=== PATIENT | male | born 1930 | race Caucasian/White ===

== ENCOUNTER 2017-06-02 14:21 | Observation (INO) | payer OTHER ==
--- NOTE | 2017-06-02 14:24 | EDPHY ---
HPI/HX/ROS/PE/MDM Narrative: CHIEF COMPLAINT: Syncopal episode, fall HPI: This patient is an 86 year old male arriving via EMS following a syncopal episode earlier this afternoon when getting up from his kitchen table. He remembers sitting at the table, and then being suddenly on the floor. He cannot think of any precipitating factors. EMS crews were able to walk him to the pram. They report a laceration to the back of his head and skin tear to his left elbow. He is currently feeling well, and complains of some pain in the area of his left hip. He denies chest pain, shortness of breath, or other associated symptoms. He states he has no history of cardiac disease or other cardiac issues. REVIEW OF SYSTEMS: Aside from elements discussed in the HPI, a comprehensive 10-point review of systems was reviewed and is negative. PMH: Prostate cancer, appendectomy, tonsillectomy SOCIAL HISTORY: . Retired. Lives in [place]. PHYSICAL EXAM: General:Patient is alert, in no acute distress. Head: 1.5cm abrasion to left occiput. ENT:Eyes are normal to inspection. ENT inspection normal. Neck: Normal inspection. Full range of motion. Respiratory:No respiratory distress. Breath sounds normal bilaterally. Cardiovascular: Regular rate and rhythm. Strong peripheral pulses. Normal cap refill. Abdomen:The abdomen is nontender to palpation. There are no peritoneal signs. There are normal bowel sounds. Back: Normal to inspection. No tenderness to palpation. Skin: Normal color. No rash. Warm and dry. Extremities: Skin tear to right elbow. Tenderness to left lower costal margin. Full range of motion. Neuro: Normal motor function. Normal sensory function. Portions of this note were transcribed by an ED scribe. I personally performed the history, physical exam, and medical decision making; and confirm the accuracy of the information in the transcribed note. ED Course: EKG was ordered and interpreted by myself. Please see [facility] system for official reading. Sinus rhythm, rate 99. Plan for chest x-ray, CT head. Plan for labs including CBC, BMP, Troponin, and PTPTT. Chest x-ray shows evidence of chronic changes, no acute processes. 15:[address] Cardoza, radiologist. CT head is negative for acute processes. Plan for CT abdomen/pelvis. 16:04 Further history obtained from patient's . She states he stood and "went down like a rock" on the kitchen floor, striking his head. She was unable to get him to respond to her, and noted him turning blue. She noted blood on his head as well, and called EMS. No CPR performed, the patient aroused spontaneously. He had no complaints prior to his syncopal episode. His does state that he is generally "wobbly". 17:54 Spoke with hospitalist service. Dr. Logan accepts admission. MDM: This patient presents with fall and syncopal episode of unclear etiology. History is relatively limited from the patient and family is unavailable to provide further history in person. Given telephonic account via bilingual patient support caseworker, it sounds like this represents a fairly concerning event, and cardiac dysrhythmia is certainly in the differential. I see no sign of infectious process or severe sepsis at this time. I see no evidence of CVA or ACS. - Data Points Imaging Results: Imaging Impressions Chest X-Ray 06/02/17 14:25 Impression: 1. Hypoventilatory chest with probable bronchitis and basilar atelectasis. 2. 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 3. Additional findings as above. Head CT 06/02/17 14:26 Impression: 1. No acute intracranial findings. 2. Diffuse cerebral atrophy with periventricular and subcortical low attenuation consistent with chronic microvascular ischemic gliosis. Findings discussed with Fermin Juarez MD 06/02/2017 at 15:03. Abdomen CT 06/02/17 15:52 Impression: 1. Multiple parapelvic cysts are seen bilaterally slightly compression from the cysts may contribute to mild calyceal dilatation. There is no ureteral obstruction. 2. Suspect hepatic hemangioma. 3. Mild prostatic enlargement is seen with associated invagination of the bladder floor. 4. Negative for displaced rib fracture or pneumothorax. 5. See above report for additional findings. Results called and discussed with Fermin Juarez MD on 06/02/2017 17:49 Laboratory Results: Laboratory Results 06/02/17 14:25 06/02/17 14:25 06/02/17 06/02/17 06/02/17 14:25 14:25 14:25 WBC 5.77 10^3/uL 10^3/uL (3.80-9.50) RBC 5.23 10^6/uL 10^6/uL (4.40-6.38) Hgb 16.4 g/dL g/dL (13.7-17.5) Hct 48.0 % % (40.0-51.0) MCV 91.8 fL fL (81.5-99.8) MCH 31.4 pg pg (27.9-34.1) MCHC 34.2 g/dL g/dL (32.4-36.7) RDW 12.4 % % (11.5-15.2) Plt Count 152 10^3/uL 10^3/uL (150-400) MPV 11.0 fL fL (8.7-11.7) Neut % (Auto) 52.8 % % (39.3-74.2) Lymph % (Auto) 35.7 % % (15.0-45.0) [place] % (Auto) 8.7 % % (4.5-13.0) Eos % (Auto) 1.4 % % (0.6-7.6) Baso % (Auto) 0.5 % % (0.3-1.7) Nucleat RBC Rel Count 0.0 % % (0.0-0.2) Absolute Neuts (auto) 3.05 10^3/uL 10^3/uL (1.70-6.50) Absolute Lymphs (auto) 2.06 10^3/uL 10^3/uL (1.00-3.00) Absolute Monos (auto) 0.50 10^3/uL 10^3/uL (0.30-0.80) Absolute Eos (auto) 0.08 10^3/uL 10^3/uL (0.03-0.40) Absolute Basos (auto) 0.03 10^3/uL 10^3/uL (0.02-0.10) Absolute Nucleated RBC 0.00 10^3/uL 10^3/uL (0-0.01) Immature Gran % 0.9 % % (0.0-1.1) Immature Gran # 0.05 10^3/uL 10^3/uL (0.00-0.10) PT 13.3 SEC SEC (12.0-15.0) INR 1.02 (0.83-1.16) APTT 25.2 SEC SEC (23.0-38.0) Sodium 141 mEq/L mEq/L (134-144) Potassium 4.2 mEq/L mEq/L (3.5-5.2) Chloride 106 mEq/L mEq/L (97-110) Carbon Dioxide 24 mEq/l mEq/l (22-31) Anion Gap 11 mEq/L mEq/L (8-16) BUN 16 mg/dL mg/dL (7-23) Creatinine 1.0 mg/dL mg/dL (0.7-1.3) Estimated GFR > 60 Glucose 123 mg/dL H mg/dL (70-100) Calcium 9.9 mg/dL mg/dL (8.5-10.4) Troponin I < 0.012 ng/mL ng/mL (0-0.034) Medications Given: Discontinued Medications Sodium Chloride (Ns) 1,000 mls @ 0 mls/hr IV ONCE ONE; Wide Open PRN Reason: Protocol Stop: 06/02/17 14:26 Last Admin: 06/02/17 14:48 Dose: 1,000 mls General Initial Vital Signs: Initial Vital Signs Temperature (C) 36.8 C 06/02/17 14:21 Heart Rate 92 06/02/17 14:21 Respiratory Rate 20 06/02/17 14:21 Blood Pressure 141/95 H 06/02/17 14:21 O2 Sat (%) 91 L 06/02/17 14:21 O2 Delivery Mode Room Air Allergies/Adverse Reactions: plague shot Allergy (Uncoded 06/02/17 14:30) Home Medications: Medication Instructions Recorded Alendronate Sodium [Fosamax 70 MG 70 mg PO LORD@0700 06/02/17 (*)] Bicalutamide [BICALUTAMIDE] 50 mg PO HS 06/02/17 Departure - Departure Disposition: [facility] Acute Clinical Impression: Syncope Qualifiers: Syncope type: unspecified Qualified Code(s): R55 - Syncope and collapse Condition: Fair Report Scribed for: Fermin Juarez Report Scribed by: Teodora Deng Date of Report: 06/02/17 Time of Report: 14:30
[2017-06-02] MEDS ORDERED: NS 1,000 ML IV ONE (14:25)
--- NOTE | 2017-06-02 14:31 | CPEKG ---
Heart Rate: 99 RR Interval: 606 P-R Interval: 156 QRSD Interval: 82 QT Interval: 384 QTC Interval: 493 P [place]: 40 QRS [place]: -35 T Wave [place]: 31 EKG Severity - BORDERLINE ECG - EKG Impression: SINUS TACHYCARDIA EKG Impression: ATRIAL PREMATURE COMPLEX EKG Impression: LEFT AXIS DEVIATION EKG Impression: BORDERLINE PROLONGED QT INTERVAL Electronically Signed By: Lonny Rodriguez 02-Jun-2017 14:38:38
[2017-06-02 14:35] LABS: % IMMATURE GRANULYOCYTES 0.9 % (0.0-1.1); ABSOLUTE IMMATURE GRANULOCYTES 0.05 10^3/uL (0.00-0.10); ADD DIFF? NO; ADD MORPH? NO; ADD SCAN? NO; ATYPICAL LYMPHOCYTE FLAG 0 (0-99); FRAGMENT RBC FLAG 0 (0-99); HEMOGLOBIN 16.4 g/dL (13.7-17.5); LEFT SHIFT FLG 10 (0-99); LIPEMIA HEMOLYSIS FLAG 90 (0-99); MEAN CELL HEMOGLOBIN 31.4 pg (27.9-34.1); MEAN CELL HEMOGLOBIN CONCENTR. 34.2 g/dL (32.4-36.7); MEAN CELL VOLUME 91.8 fL (81.5-99.8); PLATELET CLUMPS FLAG 20 (0-99); PLATELET COUNT 152 10^3/uL (150-400); RED BLOOD CELL COUNT 5.23 10^6/uL (4.40-6.38); RED CELL DISTRIBUTION WIDTH 12.4 % (11.5-15.2)
[2017-06-02 14:52] LABS: APTT 25.2 SEC (23.0-38.0); INR 1.02 (0.83-1.16); PROTIME(PATIENT) 13.3 SEC (12.0-15.0)
[2017-06-02 14:58] LABS: ANION GAP 11 mEq/L (8-16); CALCIUM 9.9 mg/dL (8.5-10.4); CARBON DIOXIDE 24 mEq/l (22-31); CHLORIDE 106 mEq/L (97-110); GLOMERULAR FILTRATION RATE > 60; GLUCOSE 123 mg/dL (70-100); POTASSIUM 4.2 mEq/L (3.5-5.2); SODIUM 141 mEq/L (134-144)
[2017-06-02 15:10] LABS: TROPONIN I < 0.012 ng/mL (0-0.034)
[2017-06-02] MEDS ORDERED: IOPAMIDOL (ISOVUE-300) 100 ML BTL ONE (16:24)
[2017-06-02] MEDS ORDERED: ONDANSETRON DISINTEGRATING 4 MG TAB PO PRN (18:09)
[2017-06-02] MEDS ORDERED: ACETAMINOPHEN 325 MG TAB PO PRN (18:09)
[2017-06-02] MEDS ORDERED: ONDANSETRON 4 MG/2 ML VIAL IVP PRN (18:09)
[2017-06-02] MEDS ORDERED: NS 1,000 ML IV SCH (18:15)
--- NOTE | 2017-06-02 18:40 | PDGENHP ---
History and Physical - Chief Complaint Acute syncope - History of Present Illness PCP: Dr. Soco Lam Primary urologist: Dr. Olivas HPI: 86 yo M p/w acute syncope characterized as "falling like a rock", witnessed by his , w/ onset of symptoms occurring when he stood up after lunch, w/ subsequent loss of consciousness and then fall, striking the posterior occiput. He experienced an associated laceration on his head. He regained consciousness w/o intervention. Unclear duration of symptoms. He has never had similar symptoms, and he has otherwise been feeling well w/o any infxn symptoms. Presently, he c/o pain located in his lower lateral left ribs, exacerbated by palpation and deep inspiration. History Information - Allergies/Home Medication List Allergies/Adverse Reactions: plague shot Allergy (Uncoded 06/02/17 14:30) Home Medications: Alendronate Sodium [Fosamax 70 MG (*)] 70 mg PO LORD@0700 06/02/17 [Last Taken ] Bicalutamide [BICALUTAMIDE] 50 mg PO HS 06/02/17 [Last Taken 06/01/17] I have personally reviewed and updated: family history, medical history, social history, surgical history - Past Medical History Additional medical history: prostate cancer - Surgical History Reports: appendectomy, hernia repair - Family History Additional family history: no family hx of CAD, arrhythmias, valve issues - Social History Smoking Status: Former smoker Alcohol Use: Other (one glass of wine nightly) Drug Use: None Additional social history: lives independently w/ , ambulatory Review of Systems ROS: 10pt was reviewed & negative except for what was stated in HPI & below Constitutional: Reports: other (fall) Muscolosketal: Reports: other (left rib pain) Neurological: Reports: other (LOC) Physical Exam Temp Pulse Resp BP Pulse Ox 36.8 C 102 H 18 180/78 H 95 06/02/17 14:21 06/02/17 16:08 06/02/17 16:08 06/02/17 16:08 06/02/17 16:08 Constitutional: no apparent distress, appears nourished, uncomfortable, No not in pain (mild pain in ribs), No chronically ill appearing Eyes: PERRL, anicteric sclera, EOMI Ears, Nose, Mouth, Throat: moist mucous membranes, hearing normal, ears appear normal, no oral mucosal ulcers Cardiovascular: tachycardia, No systolic murmur, No irregularly irregular, No carotid bruit, No edema Respiratory: no rales or rhonchi, clear to auscultation, other (splinting in L lung), No respiratory distress Gastrointestinal: normoactive bowel sounds, soft, non-tender abdomen, no palpable masses, No distension Genitourinary: no bladder fullness, no bladder tenderness Skin: other (ecchymosis posterior occiput, none over L ribs) Musculoskeletal: full muscle strength, other (tenderness over left ribs axillary line) Neurologic: AAOx3, sensation intact bilaterally, CN II-XII Intact Psychiatric: interacting appropriately, not anxious, not encephalopathic, thought process linear Lab Data & Imaging Review 06/02/17 14:25 06/02/17 14:25 WBC 5.77 10^3/uL (3.80-9.50) 06/02/17 14:25 RBC 5.23 10^6/uL (4.40-6.38) 06/02/17 14:25 Hgb 16.4 g/dL (13.7-17.5) 06/02/17 14:25 Hct 48.0 % (40.0-51.0) 06/02/17 14:25 MCV 91.8 fL (81.5-99.8) 06/02/17 14:25 MCH 31.4 pg (27.9-34.1) 06/02/17 14:25 MCHC 34.2 g/dL (32.4-36.7) 06/02/17 14:25 RDW 12.4 % (11.5-15.2) 06/02/17 14:25 Plt Count 152 10^3/uL (150-400) 06/02/17 14:25 MPV 11.0 fL (8.7-11.7) 06/02/17 14:25 Neut % (Auto) 52.8 % (39.3-74.2) 06/02/17 14:25 Lymph % (Auto) 35.7 % (15.0-45.0) 06/02/17 14:25 [place] % (Auto) 8.7 % (4.5-13.0) 06/02/17 14:25 Eos % (Auto) 1.4 % (0.6-7.6) 06/02/17 14:25 Baso % (Auto) 0.5 % (0.3-1.7) 06/02/17 14:25 Nucleat RBC Rel Count 0.0 % (0.0-0.2) 06/02/17 14:25 Absolute Neuts (auto) 3.05 10^3/uL (1.70-6.50) 06/02/17 14:25 Absolute Lymphs (auto) 2.06 10^3/uL (1.00-3.00) 06/02/17 14:25 Absolute Monos (auto) 0.50 10^3/uL (0.30-0.80) 06/02/17 14:25 Absolute Eos (auto) 0.08 10^3/uL (0.03-0.40) 06/02/17 14:25 Absolute Basos (auto) 0.03 10^3/uL (0.02-0.10) 06/02/17 14:25 Absolute Nucleated RBC 0.00 10^3/uL (0-0.01) 06/02/17 14:25 Immature Gran % 0.9 % (0.0-1.1) 06/02/17 14:25 Immature Gran # 0.05 10^3/uL (0.00-0.10) 06/02/17 14:25 PT 13.3 SEC (12.0-15.0) 06/02/17 14:25 INR 1.02 (0.83-1.16) 06/02/17 14:25 APTT 25.2 SEC (23.0-38.0) 06/02/17 14:25 D-Dimer 2.01 ug/mLFEU (0.00-0.50) H 06/02/17 Unknown Sodium 141 mEq/L (134-144) 06/02/17 14:25 Potassium 4.2 mEq/L (3.5-5.2) 06/02/17 14:25 Chloride 106 mEq/L (97-110) 06/02/17 14:25 Carbon Dioxide 24 mEq/l (22-31) 06/02/17 14:25 Anion Gap 11 mEq/L (8-16) 06/02/17 14:25 BUN 16 mg/dL (7-23) 06/02/17 14:25 Creatinine 1.0 mg/dL (0.7-1.3) 06/02/17 14:25 Estimated GFR > 60 06/02/17 14:25 Glucose 123 mg/dL (70-100) H 06/02/17 14:25 Calcium 9.9 mg/dL (8.5-10.4) 06/02/17 14:25 Troponin I < 0.012 ng/mL (0-0.034) 06/02/17 14:25 Visualized and Interpreted Chest x-ray results: Yes Chest X-Ray results: other (hypoventilation, atelectasis) Visualized and Interpreted EKG results: Yes EKG Interpretation: Positive for: other (sinus tachy, Q in III/aVF) Assessment & Plan Assessment: 86 yo M p/w acute syncope, suspected rib fracture Plan: # Syncope. Acute, new problem, further w/u indicated. Sudden LOC w/o prodrome, concerning for possible cardiac arrhythmia - reviewed outside records, ED report 05/28/[address] Ventura reports fall w/ abrasions, but no LOC at that time, suspected to be mechanical - get orthostatics - get Echo - get CUS - monitor on tele - give IVF o/n - r/o PE w/ dimer given high risk w/ prostate CA - if all negative, order outpt event monitor # Suspected rib fracture. Acute, left ribs s/p fall - get rib scan - incentive spirometer - lidoderm patch, PRN ibuprofen/oxy IR # Atelectasis. 2/2 rib pain, IS Diet. Regular PPx. High risk, lovenox 40 Code. Full per patient, MDPOA Dispo. ADD 06/03, pending further w/u above. Discussed with Dr. Juarez, he does not recommend trauma evaluation at this time.
[2017-06-02] MEDS ORDERED: oxyCODONE IR 5 MG TAB PO PRN (18:52)
[2017-06-02] MEDS ORDERED: PATCH REMOVAL 1 EA PATCH TD SCH (21:00)
[2017-06-02] MEDS ORDERED: BICALUTAMIDE 50 MG TAB PO SCH (21:00)
[2017-06-02] MEDS: LIDOCAINE 5% 1 EA PATCH TD SCH (21:30)
[2017-06-02] MEDS: IBUPROFEN 600 MG TAB PO PRN (21:30)
[2017-06-02] MEDS ORDERED: IOPAMIDOL (ISOVUE 370) 100 ML BTL IV ONE (22:10)
[2017-06-03 02:33] LABS: COLOR YELLOW; LEUKOCYTE ESTERASE,URINE NEGATIVE (NEGATIVE); NITRITE,URINE NEGATIVE (NEGATIVE)
[2017-06-03 05:08] LABS: ABSOLUTE IMMATURE GRANULOCYTES 0.06 10^3/uL (0.00-0.10); ADD DIFF? NO; ADD MORPH? NO; ADD SCAN? NO; ATYPICAL LYMPHOCYTE FLAG 0 (0-99); FRAGMENT RBC FLAG 0 (0-99); HEMATOCRIT 40.5 % (40.0-51.0); HEMOGLOBIN 13.7 g/dL (13.7-17.5); LEFT SHIFT FLG 10 (0-99); LIPEMIA HEMOLYSIS FLAG 90 (0-99); MEAN CELL HEMOGLOBIN 31.4 pg (27.9-34.1); MEAN CELL HEMOGLOBIN CONCENTR. 33.8 g/dL (32.4-36.7); MEAN CELL VOLUME 92.9 fL (81.5-99.8); MEAN PLATELET VOLUME 11.5 fL (8.7-11.7); PLATELET CLUMPS FLAG 10 (0-99); PLATELET COUNT 135 10^3/uL (150-400); RED BLOOD CELL COUNT 4.36 10^6/uL (4.40-6.38); RED CELL DISTRIBUTION WIDTH 12.4 % (11.5-15.2)
[2017-06-03 05:38] LABS: ALANINE AMINOTRANSFERASE 22 IU/L (21-72); ALBUMIN 2.7 g/dL (3.5-5.0); ALKALINE PHOSPHATASE 58 IU/L (38-126); ANION GAP 6 mEq/L (8-16); ASPARTATE AMINOTRANSFERASE 24 IU/L (17-59); BILIRUBIN,TOTAL 0.5 mg/dL (0.1-1.4); CALCIUM 9.1 mg/dL (8.5-10.4); CARBON DIOXIDE 21 mEq/l (22-31); CHLORIDE 107 mEq/L (97-110); GLOMERULAR FILTRATION RATE > 60; GLUCOSE 81 mg/dL (70-100); MAGNESIUM 2.1 mg/dL (1.6-2.3); POTASSIUM 4.2 mEq/L (3.5-5.2); SODIUM 134 mEq/L (134-144); TOTAL PROTEIN 5.2 g/dL (6.3-8.2)
[2017-06-03 05:42] LABS: TROPONIN I 0.024 ng/mL (0-0.034)
[2017-06-03 07:19] VITALS: PULSE 66
[2017-06-03] MEDS ORDERED: ENOXAPARIN 40 MG/0.4 ML SYR SC SCH (09:00)
[2017-06-03 11:48] VITALS: BP 145/77; RESP 13; TEMP 97.4; O2SAT 92
--- NOTE | 2017-06-03 13:10 | ECHO ---
[id number] + + [address] : : [place] [address] : : [phone] + + Adult Echocardiographic Report + ------+ :Name: JAMIE LUIS F CStudy Date: 06/03/2017 08:25 AM : : Hospital Admission Number: [id number] Locatio n: 215: :: 1930 Gender: Male Height: 61 in : :Age: 86 yrs Race: WH Weight: 160 lb : :Reason For Study: Eval valves/syncope : : BSA: 1.7 meters 2 : + ------+ MMode/2D Measurements \T\ Calculations IVSd: 0.72 cm LVIDd: 4.9 cm FS: 48.9 % Ao root diam: LVPWd: 0.82 cm LVIDs: 2.5 cm EDV(Teich): 3.9 cm 114.2 ml LA dimension: ESV(Teich): 4.0 cm 22.7 ml EF(Teich): 80.1 % LVLd ap4: 8.0 cm SV(MOD-sp4): EDV(MOD-sp4): 45.0 ml 63.0 ml LVLs ap4: 6.6 cm ESV(MOD-sp4): 18.0 ml EF(MOD-sp4): 71.4 % Normal Measurement Values: + + :LVIDd (3.5-5.7cm) IVSd (0.6-1.1cm) LVPWd (0.6-1.1cm) Aortic Root (2.0-3.7cm)Left Atrium (1.5-4.0cm): :LV Vol(d) (76-115ml) LV Vol(s) (29-48ml) Ejec Fraction (50-65%)PV Bob (0.6- 1.2m/s) TV Bob (0.4-1.0m/s) : :MV E Bob (0.8-1.0m/s)MV A Bob (0.3-1.0m/s)LVOT Bob (0.7-1.2m/s) Asc Ao Bob ( 0.9-1.8m/s) : + + Doppler Measurements \T\ Calculations MV E max bob: 89.3 cm/sec Ao V2 max: 135.3 cm/sec TR max bob: 160.2 cm/sec MV A max bob: 126.4 cm/sec Ao max P.3 mmHg TR max P.3 mmHg MV E/A: 0.71 RAP systole: 5.0 mmHg RVSP(TR): 15.3 mmHg Left Ventricle The left ventricle is normal in size. There is mild concentric left ventricular hypertrophy. Left ventricular systolic function is normal. Ejection Fraction = 70-75%. No regional wall motion abnormalities noted. Right Ventricle The right ventricle is normal in size and function. Atria The left atrial size is normal. Right atrial size is normal. The interatrial septum is intact with no evidence for an atrial septal defect. Mitral Valve There is mild mitral annular calcification. There is no evidence of mitral valve prolapse. There is no mitral valve stenosis. There is mild mitral regurgitation. Tricuspid Valve Normal tricuspid valve. There is mild tricuspid regurgitation. Aortic Valve The aortic valve is trileaflet. The aortic valve opens well. Mildly calcified NCC of the aortic valve. There is no aortic stenosis. There is no aortic insufficiency. Pulmonic Valve The pulmonic valve is normal in structure and function. Mild pulmonic valvular regurgitation. Great Vessels The aortic root is normal size. Pericardium/Pleural There is no pericardial effusion. There is a fat pad seen. Conclusion A complete two-dimensional transthoracic echocardiogram was performed (2D, M-mode, Doppler and color flow Doppler). Left ventricular systolic function is normal. Ejection Fraction = 70-75%. There is mild mitral annular calcification. There is mild mitral regurgitation. There is mild tricuspid regurgitation. Mildly calcified NCC of the aortic valve. Mild pulmonic valvular regurgitation. There is a fat pad seen. Final Reading Physician: Dayami Negro signed on 06/03/2017 01:09 PM Ordering Physician: Luis F Logan Performed By: Anna Navarro RDCS
[2017-06-03] MEDS: IBUPROFEN 600 MG TAB PO PRN (14:01)
[2017-06-03] MEDS: LIDOCAINE 5% 1 EA PATCH TD SCH (14:14)
--- NOTE | 2017-06-03 16:28 | PDDCSUM ---
Discharge Summary Discharge Summary: DISCHARGE SUMMARY FOLLOW-UP ITEMS: Repeat outpatient blood pressure checks DATE OF ADMISSION: 06/02/2017 DATE OF DISCHARGE: 06/03/2017 DISCHARGE DIAGNOSES: 1. Acute syncope 2. Suspected vasovagal episode 3. Acute traumatic left 7th rib fracture, nondisplaced CONSULTATIONS: None PROCEDURES / IMAGING: Echocardiogram demonstrating normal ejection fraction, no focal wall motion abnormalities, carotid ultrasounds demonstrating mild plaque in right carotid, otherwise normal, CT angiograms demonstrating no evidence of pulmonary embolism CHIEF COMPLAINT: Acute syncope SUBJECTIVE: Patient is feeling well at time of discharge, he has been ambulating safely PHYSICAL EXAM ON DISCHARGE: Systolic blood pressure is 100-150, negative orthostatics, alert awake oriented x3, no apparent distress, pain level 0/10 LABS ON DISCHARGE: Creatinine 1, glucose 80, potassium 4.2, TSH 1, troponin negative x2, liver panel unremarkable, white blood cell count 6200, hemoglobin 13.7 HOSPITAL COURSE BY PROBLEM: 1. Acute syncope. Patient presented with a true syncopal episode with loss of consciousness and collapse, most likely secondary to vasovagal response from esophageal and stomach dilation, with symptoms occurring right after the patient had eaten a meal and stood up. His cardiac neurovascular workup was otherwise normal I do not believe that he requires outpatient event monitoring at this time. I recommend that he follow up with his primary care provider closely gauge whether he has any recurrence of the symptoms, which may warrant outpatient cardiac monitoring. 2. Suspected vasovagal episode. The only abnormality noted on the patient's entire presentation was fluid dilation of the esophagus and stomach, which the patient was reportedly asymptomatic of at that time. Suspect the patient may have a degree of reflux and distal esophageal dilation, which may predispose him to Vegal stimulation, particular when he is eating a large meal. This could result in a vasovagal episode. 3. Rib fracture. Patient experienced acute traumatic nondisplaced rib fracture of the 7th rib, and we have provided him with incentive spirometer as well as often pain control. The patient prefers to manage his pain with ibuprofen, is declining Lidoderm patch and opiates for pain control. DISCHARGE MEDICATIONS: Please see official discharge medication reconciliation sheet in chart , as- needed ibuprofen and Tylenol. DISCHARGE INSTRUCTIONS: Patient should follow up with his primary care provider later this week.
--- NOTE | 2017-06-03 16:32 | PDIAF ---
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 PICC Care - Routine: N/A - Orders Services needed: Home Care, Registered Nurse, Master Director Of Accounts Receivable, Physical Therapy, Occupational Therapy Home Care Face to Face: I certify that this patient was under my care and that I had the required [id number] encounter meeting the encounter requirements on the discharge day. My findings support the fact that the patient is homebound as defined in CMS Chapter 7 Medicare Benefits Manual 30.1.1, The condition of the patient is such that there exists a normal inability to leave home and consequently, leaving home would require a considerable and taxing effort. Oxygen: NA Diet Recommendation: no restrictions on diet Anderson: Not applicable Wound Care Instructions: incentive spirometer Activity/Weight Bearing Restrictions: as tolerated - Follow Up Care Current Providers and Referrals: NONE *PRIMARY CARE P,. [Unknown] - As per Instructions Soco Lam MD [Primary Care Provider] - 3-5 days
== END 2017-06-03 16:20 | disposition home or self-care (01) ==
LOC: EDUNIT# → F2W 19:24
PROVIDERS: ADMIT Internal Medicine; ATTEND Internal Medicine
DX: R55 Syncope and collapse (principal); S22.32XA Fracture of one rib, left side, initial encounter for closed fracture; Z87.891 Personal history of nicotine dependence; J98.11 Atelectasis
CPT/HCPCS: 70450; 71020; 71100; 71275; 74177; 92523; 93005; 93306; 93880; 97161; 97165; G0378; G8978; G8979; G8980; G8987; G8988; G9168; G9169; J1650; Q9967

== ENCOUNTER → 2017-06-07 | Outpatient (CLI) | payer OTHER | LOC: BHFA 11:00 | PROVIDERS: ATTEND Internal Medicine | DX: R55 Syncope and collapse (principal) ==